=== PATIENT | female | born 2000 | race Hispanic/Latino ===

== ENCOUNTER 2022-03-19 07:48 | Day surgery (SDC) | payer MEDICAID ==
[2022-03-18 15:50] LABS: BASOPHILS % (AUTO) 0.5 % (0.0-5.0); EOSINOPHILS % (AUTO) 2.1 % (0.0-8.0); HEMATOCRIT 42.1 % (36-48); LYMPHOCYTES % (AUTO) 23.9 % (21.0-51.0); MEAN CORPUSCULAR HEMOGLOBIN 27.3 pg (27.0-33.0); MEAN CORPUSCULAR HGB CONC 30.6 g/dL (32.0-36.0); MEAN CORPUSCULAR VOLUME 89.2 fL (79-99); MONOCYTES % (AUTO) 4.6 % (3.0-13.0); NEUTROPHILS % (AUTO) 68.6 % (40.0-77.0); PLATELET COUNT (AUTO) 286 K/uL (130-400); RED BLOOD CELL COUNT(AUTO) 4.72 MIL/uL (4.00-5.50); RED CELL DISTRIBUTION WIDTH 15.5 % (11.0-15.5); WHITE BLOOD COUNT (AUTO) 9.3 K/uL (4.8-10.8)
[2022-03-18 15:52] VITALS: BP 138/71
[2022-03-18 16:13] LABS: CREATININE 0.8 mg/dL (0.5-1.5); POTASSIUM 3.6 mmol/L (3.5-5.1)
[2022-03-19] VITALS (15 sets, daily range): BP systolic 131–168; BP diastolic 69–109
[~2022-03-19] VITALS: Ht 157.5 cm; Wt 180.7 kg
[2022-03-19] MEDS ORDERED: LACTATED RINGERS 1000ML 1,000 ML IV ONE (08:51)
[2022-03-19] MEDS: CEFAZOLIN SODIUM 1 GM VIAL ONE ×2 (09:06→13:30)
[2022-03-19] MEDS ORDERED: LIDOCAINE PF 100MG/5ML (2%) SYRINGE 5ML ONE (09:07)
[2022-03-19] MEDS ORDERED: FAMOTIDINE 20MG VIAL IV ONE (09:07)
[2022-03-19] MEDS ORDERED: HYDROMORPHONE 1 MG INJ ONE (09:07)
[2022-03-19] MEDS ORDERED: FENTANYL CITRATE PF 50 MCG/1 ML 2ML VIAL ONE ×2 (09:43→15:57)
[2022-03-19] MEDS ORDERED: MIDAZOLAM HCL 1 MG/ML 2ML VIAL ONE ×2 (09:43→15:23)
[2022-03-19] MEDS ORDERED: ONDANSETRON 4MG INJ ONE (09:43)
[2022-03-19] MEDS ORDERED: PROPOFOL 10 MG/ML 20ML VIAL IV ONE (09:43)
[2022-03-19] MEDS ORDERED: ROCURONIUM 10MG/1ML SYR 10 MG/ML ML ONE ×2 (09:44→14:28)
[2022-03-19] MEDS ORDERED: INDOCYANINE GREEN 25 MG VIAL IJ SCH (10:00)
[2022-03-19] MEDS ORDERED: BUPIVACAINE/PF 0.5% 30ML VIAL ONE (12:50)
[2022-03-19] MEDS ORDERED: DEXAMETHASONE SOD PHOSPHATE 4 MG/ML 1ML VIAL ONE (13:55)
[2022-03-19] MEDS ORDERED: NEOSTIGMINE 5MG/5ML SYR IV ONE (14:28)
[2022-03-19] MEDS ORDERED: GLYCOPYRROLATE 1 MG/5 ML SYRINGE ONE (14:28)
[2022-03-19] MEDS ORDERED: DEXMEDETOMIDINE HCL 200 MCG/2 ML VIAL IV ONE (15:34)
== END 2022-03-19 16:58 | disposition home or self-care (01) ==
LOC: DAH 07:48
PROVIDERS: ATTEND Surgery
DX: K80.10 Calculus of gallbladder with chronic cholecystitis without obstruction (principal); K21.9 Gastro-esophageal reflux disease without esophagitis; E66.01 Morbid (severe) obesity due to excess calories; Z68.45 Body mass index [BMI] 70 or greater, adult; Z98.890 Other specified postprocedural states
CPT/HCPCS: 36415; 47562; 80048; 84703; 85025; 87635; A4213; A4215 ×2; A4221; A4222; A4223; A4649 ×3; A4663; A6260; C1769 ×4; C9803; G0168; J0690; J1100; J1170; J2250 ×2; J2405; J2710; J3010 ×2; J3490 ×4; J7030; J7120 ×2; S0020; S0028; S2900; J2001; J2704

== ENCOUNTER 2022-04-05 15:24 | Emergency (ER) | payer MEDICAID ==
[~2022-04-05] VITALS: Ht 154.9 cm; Wt 176.9 kg
[~2022-04-05 15:24] MED LIST: AMOX-426 PO
[2022-04-05 15:25] VITALS: BP 119/71
== END 2022-04-05 16:32 | disposition home or self-care (01) ==
LOC: EDH 15:24
DX: Z43.3 Encounter for attention to colostomy (principal); Z90.49 Acquired absence of other specified parts of digestive tract

== ENCOUNTER 2022-04-14 11:02 | Day surgery (SDC) | payer MEDICAID ==
[2022-04-12 10:49] LABS: INR 0.93 (0.85-1.15); PROTHROMBIN TIME 9.8 SEC (9.6-11.6)
[2022-04-12 10:50] LABS: PARTIAL THROMBOPLASTIN TIME 25.4 SEC (26.3-35.5)
[~2022-04-14] VITALS: Ht 154.9 cm; Wt 175.6 kg
[2022-04-14] MEDS ORDERED: 0.9%NACL 1000ML 1,000 ML IV ONE (12:10)
[2022-04-14] MEDS ORDERED: LIDOCAINE HCL 400MG/20ML VIAL ONE (13:12)
[2022-04-14 14:00] VITALS: BP 120/72
== END 2022-04-14 14:15 | disposition home or self-care (01) ==
LOC: DAH 11:02
PROVIDERS: ATTEND Surgery
DX: L02.211 Cutaneous abscess of abdominal wall (principal); E66.01 Morbid (severe) obesity due to excess calories; Z68.45 Body mass index [BMI] 70 or greater, adult; Z79.01 Long term (current) use of anticoagulants
CPT/HCPCS: 85610; 85730; 36415 ×2; 76080; 49424; 84703; J7030; J1644; J3490